=== PATIENT | male | born 1995 | race African-American/Black ===

== ENCOUNTER 2022-04-30 17:08 | Inpatient (IN) | payer BC, OTHER ==
[2022-04-30] MEDS ORDERED: CLINDAMYCIN 900 MG PREMIX IVPB 900 MG/50 ML BAG IVPB ONE ×2 (19:47→20:06)
[2022-04-30 20:12] LABS: BASO % 0.5 % (0-2.0); EOS % 1.4 % (0-4.5); HEMATOCRIT 46.5 % (35.4-49); HEMOGLOBIN 15.2 GM/dL (11.7-16.9); LYMPH % 14.6 % (8-40); MCHC 32.6 g/dl (32.0-35.9); MEAN CELL VOLUME 79.7 fl (80-96); MEAN PLT VOLUME 8.6 fl (7.5-11.1); MONO % 6.4 % (3.8-10.2); NEUT % 77.1 % (42.8-82.8); PLATELET COUNT 377 10^3/uL (134-434); RBC 5.83 M/mm3 (4.00-5.60); RDW 13.5 % (11.9-15.9); WHITE BLOOD COUNT 11.5 K/mm3 (4.0-10.0)
[2022-04-30 20:21] LABS: INR 1.14 (0.83-1.09); PROTHROMBIN TIME (PATIENT) 13.1 SEC (9.7-13.0)
[2022-04-30 20:30] LABS: CHLORIDE 100 mmol/L (98-107); SODIUM 130 mmol/L (136-145)
[2022-04-30 20:32] LABS: ALBUMIN 3.7 g/dl (3.4-5.0); CALCIUM 8.9 mg/dL (8.5-10.1); CO2 26 mmol/L (21-32); GLUCOSE,RANDOM 256 mg/dL (74-106)
[2022-04-30 20:33] LABS: BLOOD UREA NITROGEN 11.5 mg/dL (7-18)
[2022-04-30 20:34] LABS: URINE APPEARANCE CLEAR; URINE BILIRUBIN NEGATIVE (NEGATIVE); URINE COLOR YELLOW; URINE KETONE 40 mg/dl (NEGATIVE); URINE LEUK ESTERASE NEGATIVE (NEGATIVE); URINE NITRITE NEGATIVE (NEGATIVE); URINE PROTEIN 300 (NEGATIVE); URINE UROBILINOGEN 0.2 mg/dL (0.2-1.0)
[2022-04-30 20:35] LABS: EPI CELLS 12.3 /uL (0-25.1); HYALINE CASTS 3.39 /uL (0-3.1); URINE BACTERIA 4.7 /uL (0-1359); URINE RBC 3.6 /uL (0-23.9); URINE WBC 8.5 /uL (0-25.8)
[2022-04-30 20:37] LABS: BILIRUBIN,TOTAL 0.7 mg/dL (0.2-1)
[2022-04-30 20:38] LABS: ALK PHOS 84 U/L (45-117)
[2022-04-30 21:02] LABS: ANION GAP 5 MMOL/L (8-16); SGOT/AST 112 U/L (15-37); SGPT/ALT 42 U/L (13-61)
[2022-04-30] MEDS ORDERED: morphine CARPU-JECT 4 MG/1 ML DISP.SYRIN IVPUSH ONE (23:34)
[2022-04-30] MEDS ORDERED: morphine SULFATE 4 MG/ML VIAL ONE (23:59)
[2022-05-01 02:08] LABS: CALCIUM 8.5 mg/dL (8.5-10.1)
[2022-05-01 02:12] LABS: CREATININE 0.7 mg/dL (0.55-1.3)
[2022-05-01] MEDS ORDERED: CLINDAMYCIN 600MG PREMIX IVPB 600 MG/50 ML BAG IVPB ONE ×2 (03:21→09:43)
[2022-05-01] MEDS: CLINDAMYCIN 600MG PREMIX IVPB 600 MG/50 ML BAG IVPB SCH ×3 (03:28→17:15)
[2022-05-01 07:06] LABS: BASO % 0.4 % (0-2.0); EOS % 2.9 % (0-4.5); HEMATOCRIT 43.4 % (35.4-49); HEMOGLOBIN 14.4 GM/dL (11.7-16.9); LYMPH % 23.5 % (8-40); MCH 26.4 pg (25.7-33.7); MCHC 33.2 g/dl (32.0-35.9); MEAN CELL VOLUME 79.6 fl (80-96); MEAN PLT VOLUME 8.9 fl (7.5-11.1); MONO % 7.1 % (3.8-10.2); NEUT % 66.1 % (42.8-82.8); PLATELET COUNT 313 10^3/uL (134-434); RBC 5.46 M/mm3 (4.00-5.60); RDW 12.8 % (11.9-15.9); WHITE BLOOD COUNT 7.8 K/mm3 (4.0-10.0)
[2022-05-01 07:24] LABS: CALCIUM 8.9 mg/dL (8.5-10.1)
[2022-05-01 07:25] LABS: ALBUMIN 3.4 g/dl (3.4-5.0); BLOOD UREA NITROGEN 9.7 mg/dL (7-18)
[2022-05-01 07:28] LABS: CREATININE 0.8 mg/dL (0.55-1.3); PHOSPHOROUS 3.9 mg/dL (2.5-4.9)
[2022-05-01 07:29] LABS: TOT PROT 7.2 g/dl (6.4-8.2)
[2022-05-01 07:30] LABS: BILIRUBIN,TOTAL 0.6 mg/dL (0.2-1)
[2022-05-01] MEDS ORDERED: ACETAMINOPHEN INJECTION 100 ML IVPB ONE (07:48)
[2022-05-01] MEDS: INSULIN SLIDING SCALE (NOVOLOG) 1 VIAL SQ SCH ×4 (08:05→21:36)
[2022-05-01] MEDS: SODIUM CHLORIDE 1,000 ML IV SCH ×2 (08:05→21:40)
[2022-05-01] MEDS: ACETAMINOPHEN 1000 MG/100 ML BAG IVPB PRN ×3 (08:05→21:37)
[2022-05-01] MEDS ORDERED: CEFTRIAXONE 1 GM/50 ML BAG ONE (12:16)
[2022-05-01] MEDS: CEFTRIAXONE 1 GM in DEXTROSE 5%-WATER - 50 ML IVPB SCH (12:17)
[2022-05-01] MEDS ORDERED: LIDOCAINE 1%/EPI 1:100000 (20 ML MULTI DOSE VIAL) ONE (15:16)
[2022-05-01 16:02] VITALS: BMI 45.2
[2022-05-01 18:06] LABS: HIV INTERPRETATION NEGATIVE (NEGATIVE)
[2022-05-01] MEDS ORDERED: LIDOCAINE HCL 2% JELLY 10 ML CARTRIDGE ONE (18:20)
[2022-05-01] MEDS ORDERED: INSULIN (LEVEMIR) 100 UNITS/ML UNITS SQ SCH (22:00)
[2022-05-02] MEDS: CLINDAMYCIN 600MG PREMIX IVPB 600 MG/50 ML BAG IVPB SCH ×2 (02:01→10:43)
[2022-05-02] MEDS: ACETAMINOPHEN 1000 MG/100 ML BAG IVPB PRN (04:00)
[2022-05-02] MEDS: INSULIN SLIDING SCALE (NOVOLOG) 1 VIAL SQ SCH ×2 (06:40→11:54)
[2022-05-02] MEDS: INSULIN (NOVOLOG) ASPART 100 UNITS/ML 10ML VIAL SQ SCH ×2 (06:40→11:55)
[2022-05-02] MEDS ORDERED: INSULIN (LEVEMIR) 100 UNITS/ML UNITS SQ SCH (07:00)
[2022-05-02 07:41] LABS: HEMATOCRIT 41.4 % (35.4-49); HEMOGLOBIN 13.4 GM/dL (11.7-16.9); MCHC 32.4 g/dl (32.0-35.9); MEAN CELL VOLUME 80.2 fl (80-96); MEAN PLT VOLUME 8.7 fl (7.5-11.1); PLATELET COUNT 303 10^3/uL (134-434); RBC 5.16 M/mm3 (4.00-5.60); WHITE BLOOD COUNT 5.7 K/mm3 (4.0-10.0)
[2022-05-02 07:57] LABS: ALBUMIN 2.9 g/dl (3.4-5.0); BLOOD UREA NITROGEN 8.5 mg/dL (7-18); CALCIUM 8.4 mg/dL (8.5-10.1)
[2022-05-02 08:00] LABS: CREATININE 0.6 mg/dL (0.55-1.3)
[2022-05-02 08:02] LABS: BILIRUBIN,TOTAL 0.5 mg/dL (0.2-1); TOT PROT 6.4 g/dl (6.4-8.2)
[2022-05-02 09:02] VITALS: BP 142/83; PULSE 82; TEMP 98.2
[2022-05-02] MEDS ORDERED: cefTRIAXone SODIUM 1 GM VIAL ONE (09:04)
[2022-05-02] MEDS ORDERED: DEXTROSE 5%-WATER - 50 ML IVPB ONE (09:04)
[2022-05-02] MEDS: SODIUM CHLORIDE 1,000 ML IV SCH (09:06)
[2022-05-02] MEDS: CEFTRIAXONE 1 GM in DEXTROSE 5%-WATER - 50 ML IVPB SCH (09:07)
[2022-05-02] MEDS ORDERED: LACTOBACILLUS ACIDOPHILUS 1 TABLET PO SCH (10:00)
== END 2022-05-02 15:46 | disposition home or self-care (01) | DRG 727 ==
LOC: JER 17:08 → JERBED 21:12 → J6S 05-01 15:34
PROVIDERS: ADMIT Hospitalist; ATTEND Internal Medicine
PROC: 0V950ZX Drainage of Scrotum, Open Approach, Diagnostic (ICD-10-PCS; principal; 2022-05-01)
DX: N49.2 Inflammatory disorders of scrotum (principal); E11.00 Type 2 diabetes mellitus with hyperosmolarity without nonketotic hyperglycemic-hyperosmolar coma (NKHHC); Z68.42 Body mass index [BMI] 45.0-49.9, adult; I10 Essential (primary) hypertension; E11.65 Type 2 diabetes mellitus with hyperglycemia; B95.2 Enterococcus as the cause of diseases classified elsewhere; B95.1 Streptococcus, group B, as the cause of diseases classified elsewhere; E66.01 Morbid (severe) obesity due to excess calories; Z90.79 Acquired absence of other genital organ(s)
CPT/HCPCS: 0241U-QW; 36415; 76870-TC; 80048; 80053; 81003; 82962; 83036; 83735; 84100; 85025; 85027; 85610; 86850; 86900; 86901; 87070; 87076; 87077; 87086; 87186; 87205; 87389; 87491; 87591; 93005; 93010; 99285-25; G0378